=== PATIENT | female | born 1965 | race Caucasian/White ===

== ENCOUNTER 2016-03-27 22:22 | Emergency (ER) | payer BC ==
[~2016-03-27] VITALS: Ht 162.6 cm; Wt 113.4 kg
[~2016-03-27 22:22] MED LIST: ALBU8.5H6 INH; ASPI325T4 PO; BUDE10.22 IH; CARV12.5 PO; CARV3.12 PO; CARV6.252 PO; CRESTOR40 MG PO; FURO40TA4 PO; INSU100C SQ; INSU100I18 SQ; PARO20TA2 PO; VALS320T2 PO
--- NOTE | 2016-03-27 23:47 | PHYS DOC ---
Past Medical History Past Medical History: Asthma, COPD, Diabetes-Type II, High Cholesterol, Heart Disease, Hypertension Past Surgical History: Appendectomy, Coronary Bypass Surgery, , Pacemaker Alcohol Use: None Drug Use: None Adult General Chief Complaint Chief Complaint: LOWER EXT PAIN HPI HPI 50-year-old female who's had left lower extremity redness and this and pain along the anterior tibial surface that she is noted for the last day. She states subjective fever and chills. She denies any nausea or vomiting. She denies any significant pain at this time. She denies any history of blood clots. She does have history of diabetes and hypertension and has history of cardiac bypass. Review of Systems Review of Systems Constitutional: Denies fever or chills [] Eyes: Denies change in visual acuity, redness, or eye pain [] HENT: Denies nasal congestion or sore throat [] Respiratory: Denies cough or shortness of breath [] Cardiovascular: No additional information not addressed in HPI [] GI: Denies abdominal pain, nausea, vomiting, bloody stools or diarrhea [] : Denies dysuria or hematuria [] Musculoskeletal: Denies back pain, has joint pain [] Integument: Denies rash, has skin lesions [] Neurologic: Denies headache, focal weakness or sensory changes [] Endocrine: Denies polyuria or polydipsia [] Allergies Allergies Allergies Coded Allergies Type Severity Reaction Last Updated Verified codeine Allergy Severe ITCHING, Vomiting 01/01/15 Yes Physical Exam Physical Exam Constitutional: Well developed, well nourished, no acute distress, non-toxic appearance. [] HENT: Normocephalic, atraumatic, bilateral external ears normal, oropharynx moist, no oral exudates, nose normal. [] Eyes: PERRLA, EOMI, conjunctiva normal, no discharge. [] Neck: Normal range of motion, no tenderness, supple, no stridor. [] Cardiovascular:Heart rate regular rhythm, no murmur [] Lungs & Thorax: Bilateral breath sounds clear to auscultation [] Abdomen: Bowel sounds normal, soft, no tenderness, no masses, no pulsatile masses. [] Skin: Warm, dry, no erythema, no rash. [] Back: No tenderness, no CVA tenderness. [] Extremities: Area of redness and tenderness to the left anterior tibial surface approximately 3.5 cm in diameter, no cyanosis, no clubbing, ROM intact, no edema. [] Neurologic: Alert and oriented X 3, normal motor function, normal sensory function, no focal deficits noted. [] Psychologic: Affect normal, judgement normal, mood normal. [] Current Patient Data Vital Signs Vital Signs Date Time Temp Pulse Resp B/P Pulse Ox O2 Delivery O2 Flow Rate FiO2 03/27/16 23:20 70 20 192/79 95 Room Air 03/27/16 22:30 98.5 98.5 EKG EKG [] Radiology/Procedures Radiology/Procedures Left venous doppler ultrasound was negative for any acute DVT. Course & Med Decision Making Course & Med Decision Making Pertinent Labs and Imaging studies reviewed. (See chart for details) This 50 yo female has a lower extremity cellulitis for which I will be putting her on oral antibiotic therapy. I will also order venous Doppler to rule out any blood clot. I do not see any indication at this time for any laboratory workup. He'll be given her strict instructions to return in 48 hours of her infection is not improving. An ultrasound of her left lower extremity was negative for any acute DVT. I'll be discharging the patient on a course of Bactrim and Keflex for her ongoing cellulitis and she'll follow-up as discussed. Dragon Disclaimer Dragon Disclaimer This electronic medical record was generated, in whole or in part, using a voice recognition dictation system. Departure Departure Impression: Primary Impression: Cellulitis Disposition: 01 HOME, SELF-CARE Admitting Physician: Other Condition: STABLE Referrals: JEIMY GIBSON MD (PCP) Patient Instructions: Cellulitis, [id number] Additional Instructions: Please take your antibiotic as prescribed and follow up closely with your primary care doctor in the next 2-3 days. Return to the ER if you develop any worsening of your symptoms. Return if you develop any worsening of your redness or pain or your area of redness should get any worse. Scripts Cephalexin (Keflex)500 Mg [id number] Mg PO QID #40 CAP Prov:ELIESER ESPINAL DO 03/28/16 Sulfamethoxazole/Trimethoprim (Bactrim Ds Tablet)1 Each Tablet1 Tab PO BID #20 TAB Prov:ELIESER ESPINAL DO 03/28/16 ELIESER ESPINAL DO Mar 27, 2016 23:47
[2016-03-28] MEDS ORDERED: SULF1TAB24 PO (00:03)
[2016-03-28] MEDS ORDERED: CEPH-264 PO (00:03)
[2016-03-28 00:16] VITALS: BP 191/81
--- NOTE | 2016-03-28 00:17 | RAD ---
LEFT LOWER EXTREMITY VENOUS DUPLEX DOPPLER Indication: SMALL FOCAL AREA OF CELLULITIS ON MEDIAL LT ANKLE. Reason: r/o dvt / Spl. Instructions: / History: Technique: Multiple real-time grayscale sonographic images were obtained over the left lower extremity with use of spectral analysis and color Doppler imaging. Findings: There is normal color fill in on Doppler imaging of the deep venous system in the left lower extremity. There is normal response to compression and augmentation. No evidence for deep venous thrombosis. No soft tissue mass or fluid collection is identified. Impression: Negative for deep venous thrombosis in the left lower extremity. Electronically signed by: Joshua Bean (Mar 28, 2016 00:16:50)
== END 2016-03-28 00:17 | disposition home or self-care (01) ==
LOC: ER 22:22
DX: L03.116 Cellulitis of left lower limb (principal); E78.00 Pure hypercholesterolemia, unspecified; E11.9 Type 2 diabetes mellitus without complications; J44.0 Chronic obstructive pulmonary disease with (acute) lower respiratory infection; J45.909 Unspecified asthma, uncomplicated; I11.9 Hypertensive heart disease without heart failure; I51.9 Heart disease, unspecified; Z95.0 Presence of cardiac pacemaker; Z95.1 Presence of aortocoronary bypass graft; Z90.49 Acquired absence of other specified parts of digestive tract; Z98.890 Other specified postprocedural states; Z88.5 Allergy status to narcotic agent
CPT/HCPCS: 93971; 99284-25

== ENCOUNTER 2016-05-31 15:32 | Emergency (ER) | payer BC ==
[~2016-05-31] VITALS: Ht 162.6 cm; Wt 113.4 kg
[~2016-05-31 15:32] MED LIST changes: +CEPH-264 PO; -PARO20TA2 PO; +PARO20TA3 PO; +SULF1TAB24 PO
--- NOTE | 2016-05-31 16:15 | EKG ---
[facility] [address] [place] [address] Test Date: 2016-05-31 Test Time: 15:38:14 Pat Name: LORENZO GRANT Department: Room: Gender: F Major Account Manager: : 1965 Requested By: LISSETTE TIERNEY Order Number: [id number] Reading MD: Measurements Intervals [place] Rate: 117 P: 29 NH: 182 QRS: -49 QRSD: 104 T: 80 QT: 310 QTc: 437 Interpretive Statements SINUS TACHYCARDIA ATRIAL PREMATURE COMPLEX(ES) ABNORMAL LEFT AXIS DEVIATION R-S TRANSITION ZONE IN V LEADS DISPLACED TO THE LEFT LEFT ANTERIOR FASCICULAR BLOCK QRS(T) CONTOUR ABNORMALITY CONSIDER ANTEROSEPTAL MYOCARDIAL DAMAGE ST & T ABNORMALITY, CONSIDER HIGH LATERAL ISCHEMIA OR LEFT VENTRICULAR STRAIN ABNORMAL ECG RI6.01 No previous ECG available for comparison
--- NOTE | 2016-05-31 16:45 | PHYS DOC ---
Past Medical History Past Medical History: Asthma, CHF, COPD, Diabetes-Type II, High Cholesterol, Heart Disease, Hypertension Past Surgical History: Appendectomy, Coronary Bypass Surgery, , Pacemaker Alcohol Use: None Drug Use: None Adult General Chief Complaint Chief Complaint: Palpitations HPI HPI 50-year-old female presenting to the emergency department today after having her defibrillator shock or 5 times. She has a history of a CABG and a pacemaker defibrillator placed by Dr. Thomas a few years ago. She reports having heart and lung disease. She also had chest tightness earlier which was alleviated by nitroglycerin given by EMS. They also gave her 324 of aspirin. She denies nausea vomiting or diaphoresis. Review of systems is negative for loss of consciousness, syncope, abdominal pain , nausea vomiting. Currently she is chest pain-free. All other review of systems is negative unless otherwise noted in history of present illness. Review of Systems Review of Systems SEE ABOVE. Current Medications Current Medications Current Medications Medications (Trade) Dose Ordered Sig/Kathya Start Time Stop Time Status Last Admin Dose Admin Aspirin (Children'S Aspirin) 324 mg 1X ONCE 05/31/16 20:00 05/31/16 20:01 DC Diltiazem HCl (Cardizem) 10 mg 1X ONCE 05/31/16 20:15 05/31/16 20:16 DC Diltiazem HCl/ Dextrose (Cardizem) 125 ml @ 0 mls/hr 1X ONCE 05/31/16 20:00 05/31/16 20:01 DC Allergies Allergies Allergies Coded Allergies Type Severity Reaction Last Updated Verified codeine Allergy Severe ITCHING, Vomiting 01/01/15 Yes Physical Exam Physical Exam Constitutional: Well developed, well nourished, no acute distress, non-toxic appearance. HENT: Normocephalic, atraumatic, bilateral external ears normal, oropharynx moist, no oral exudates, nose normal. [] Eyes: PERRLA, EOMI, conjunctiva normal, no discharge. [] Neck: Normal range of motion, no tenderness, supple, no stridor. [] Cardiovascular:Heart rate regular rhythm, no murmur . Mildly tachycardic with an irregular rhythm. Lungs & Thorax: Bilateral breath sounds clear to auscultation []. No crackles. No wheezing. Abdomen: Bowel sounds normal, soft, no tenderness, no masses, no pulsatile masses. Skin: Warm, dry, no erythema, no rash. [] Back: No tenderness, no CVA tenderness. Extremities: No tenderness, no cyanosis, no clubbing, ROM intact, no edema. [] Neurologic: Alert and oriented X 3, normal motor function, normal sensory function, no focal deficits noted. Psychologic: Affect normal, judgement normal, mood normal. [] Current Patient Data Vital Signs Vital Signs Date Time Temp Pulse Resp B/P Pulse Ox O2 Delivery O2 Flow Rate FiO2 05/31/16 20:06 124 20 200/100 93 Room Air 05/31/16 15:56 98.7 98.7 Lab Values Laboratory Tests Test 05/31/16 15:45 White Blood Count 10.9x10^3/uL (4.0-11.0) Red Blood Count 5.07x10^6/uL (3.50-5.40) Hemoglobin 14.3g/dL (12.0-15.5) Hematocrit 43.7% (36.0-47.0) Mean Corpuscular Volume 86fL (79-100) Mean Corpuscular Hemoglobin 28pg (25-35) Mean Corpuscular Hemoglobin Concent 33g/dL (31-37) Red Cell Distribution Width 14.4% (11.5-14.5) Platelet Count 225x10^3/uL (140-400) Neutrophils (%) (Auto) 74% (31-73) H Lymphocytes (%) (Auto) 17% (24-48) L Monocytes (%) (Auto) 6% (0-9) Eosinophils (%) (Auto) 2% (0-3) Basophils (%) (Auto) 1% (0-3) Neutrophils # (Auto) 8.1x10^3uL (1.8-7.7) H Lymphocytes # (Auto) 1.8x10^3/uL (1.0-4.8) Monocytes # (Auto) 0.7x10^3/uL (0.0-1.1) Eosinophils # (Auto) 0.2x10^3/uL (0.0-0.7) Basophils # (Auto) 0.1x10^3/uL (0.0-0.2) Sodium Level 138mmol/L (136-145) Potassium Level 4.5mmol/L (3.5-5.1) Chloride Level 99mmol/L (98-107) Carbon Dioxide Level 24mmol/L (21-32) Anion Gap 15 (6-14) H Blood Urea Nitrogen 20mg/dL (7-20) Creatinine 0.7mg/dL (0.6-1.0) Estimated GFR (Cockcroft-Gault) 88.2 Glucose Level 353mg/dL (70-99) H Calcium Level 9.6mg/dL (8.5-10.1) Total Bilirubin 0.6mg/dL (0.2-1.0) Direct Bilirubin < 0.1mg/dL (0.0-0.2) Aspartate Amino Transferase (AST) 20U/L (15-37) Alanine Aminotransferase (ALT) 23U/L (14-59) Alkaline Phosphatase 81U/L (46-116) Troponin I Quantitative 0.263ng/mL (0.000-0.055) JI-Lnx-K-Type Natriuretic Peptide 873pg/mL (0-124) H Total Protein 7.2g/dL (6.4-8.2) Albumin 3.3g/dL (3.4-5.0) L Lipase 266U/L (73-393) Laboratory Tests 05/31/16 15:45 Laboratory Tests 05/31/16 15:45 EKG EKG [] EKG shows sinus rhythm with possible increasingly prolonging MI interval. Tachycardia present. ST segments congruent. axis leftward. Radiology/Procedures Radiology/Procedures [] Chest x-ray shows no obvious infiltrate or pneumothorax. Cardiomegaly present. Course & Med Decision Making Course & Med Decision Making Pertinent Labs and Imaging studies reviewed. (See chart for details) Initial impression: 50-year-old female presenting to the emergency department with multiple defibrillations by her ICD. Upon presentation to the emergency department the patient is tachycardic and hypertensive. Pertinent physical exam shows tachycardia. Otherwise the patient is not in any distress and comfortable in the hospital gurney. The patient was given and admitted to our hospital for telemetry monitoring and cardiology consultation. Update: Upon reassessment of the patient the patient and her family is very upset. I tried to explain to them that I was with a critical patient in the interim and apologized for the wait. The patient was being admitted to the hospital for telemetry and cardiology consultation. I informed the patient of their right to a medical screening exam and any treatment and/or stabilization that may be necessary regardless of their ability to pay. The patient appears to have intact insight, judgment, and reason. In my opinion, this patient has the capacity to make decisions. I felt that the patient had medical decision making capabilities. The patient presented with being shocked by her icd and I am concerned that she is having multiple runs of ventricular tachycardia or ventricular fibrillation.. My initial plan prior to the pt expressing the desire to leave was to admit the patient to our hospital, give diltiazem to help her with her rate. I had the chance to talk to Dr Mckeon who recommended amiodarone. Unfortunately the patient left prior to my having gotten a hold of our cardiology team. He recommended we call the patient to offer her amiodarone 400 mg twice a day. I attempted to call the patient however the patient did not return our phone call. Voice mail was left to call back. No call back was received. Prior to the patient leaving, I offered her nitroglycerin to go home with which she declined. I explained the risk of and disability to the patient in plain language which they were able to demonstrate in their own words verbal understanding. Specifically, I was concerned the patient might return in acute cardiac arrest. I communicated this to them. I discussed the limitations of the workup thus far included but were not limited to cardiology consultation and admission to the hospital. The pt has verbalized understanding of my concerns. I offered alternatives to the therapy including close outpatient follow-up with cardiology. I recommended the pt follow up with Dr. Mckeon or [facility] tomorrow. Patient's family is here with her today, her brother and another female. They understand the gravity of the patient's condition and our agreement with the patient's decision. I explained that at any time if the patient changed their mind, we are always open and would be happy to have them back. The patient refused further care and then left against medical advice. Dragon Disclaimer Dragon Disclaimer This electronic medical record was generated, in whole or in part, using a voice recognition dictation system. Departure Departure Impression: Primary Impression: ICD (implantable cardioverter-defibrillator) in place Additional Impression: Presence of cardioverter defibrillator Disposition: AGAINST MEDICAL ADVICE Admitting Physician: Laura, Cunmei Condition: GRAVE Referrals: JEIMY GIBSON MD (PCP) Problem Qualifiers LISSETTE TIERNEY MD May 31, 2016 16:45
[2016-05-31 16:47] LABS: BASO # 0.1 x10^3/uL (0.0-0.2); BASO % 1 % (0-3); EOS % 2 % (0-3); HEMATOCRIT 43.7 % (36.0-47.0); HEMOGLOBIN 14.3 g/dL (12.0-15.5); LYMPH # 1.8 x10^3/uL (1.0-4.8); LYMPH % 17 % (24-48); MEAN CORPUSCULAR HEMOGLOBIN 28 pg (25-35); MEAN CORPUSCULAR HGB CONC 33 g/dL (31-37); MEAN CORPUSCULAR VOLUME 86 fL (79-100); MONO % 6 % (0-9); NEUT % 74 % (31-73); PLATELET COUNT 225 x10^3/uL (140-400); RED BLOOD COUNT 5.07 x10^6/uL (3.50-5.40); RED CELL DISTRIBUTION WIDTH 14.4 % (11.5-14.5); WHITE BLOOD COUNT 10.9 x10^3/uL (4.0-11.0)
[2016-05-31 17:04] LABS: ANION GAP 15 (6-14); BLOOD UREA NITROGEN 20 mg/dL (7-20); CALCIUM 9.6 mg/dL (8.5-10.1); CARBON DIOXIDE 24 mmol/L (21-32); CHLORIDE 99 mmol/L (98-107); CREATININE 0.7 mg/dL (0.6-1.0); GFR 88.2; GLUCOSE 353 mg/dL (70-99); POTASSIUM 4.5 mmol/L (3.5-5.1); SODIUM 138 mmol/L (136-145)
[2016-05-31 17:10] LABS: ALBUMIN 3.3 g/dL (3.4-5.0); ALK PHOS 81 U/L (46-116); ALT (SGPT) 23 U/L (14-59); AST (SGOT) 20 U/L (15-37); DIRECT BILIRUBIN < 0.1 mg/dL (0.0-0.2); TOTAL BILIRUBIN 0.6 mg/dL (0.2-1.0); TOTAL PROTEIN 7.2 g/dL (6.4-8.2)
[2016-05-31] MEDS ORDERED: ASPIRIN 81 MG TAB.CHEW PO ONE (20:00)
[2016-05-31] MEDS ORDERED: DILTIAZEM 125 MG in IV DEXTROSE 5% 100 ML IV ONE (20:00)
[2016-05-31 20:06] VITALS: BP 200/100
[2016-05-31] MEDS ORDERED: DILTIAZEM IV PUSH 25 MG/5 ML VIAL. IVP ONE (20:15)
--- NOTE | 2016-06-01 08:55 | RAD ---
Portable chest, 05/31/2016: History: Chest pain Comparison is made to a study from 01/01/2015. There has been a previous median sternotomy. A left-sided transvenous pacemaker remains in place with 2 leads extending into the right heart. The heart is mildly enlarged. The pulmonary vascularity is normal. No pulmonary infiltrates are seen. There is no evidence of pleural fluid. IMPRESSION: 1. Unchanged cardiomegaly. 2. No acute cardiopulmonary abnormality is detected.
== END 2016-05-31 20:43 | disposition left against medical advice (07) ==
LOC: ER 15:32
DX: Z95.810 Presence of automatic (implantable) cardiac defibrillator (principal); R07.89 Other chest pain; J44.0 Chronic obstructive pulmonary disease with (acute) lower respiratory infection; J45.909 Unspecified asthma, uncomplicated; I11.0 Hypertensive heart disease with heart failure; I50.9 Heart failure, unspecified; E11.9 Type 2 diabetes mellitus without complications; E78.00 Pure hypercholesterolemia, unspecified; Z95.0 Presence of cardiac pacemaker; Z95.1 Presence of aortocoronary bypass graft; Z90.49 Acquired absence of other specified parts of digestive tract; Z88.5 Allergy status to narcotic agent
CPT/HCPCS: 36415; 71010; 80048; 80076; 83690; 83880; 84484; 85027; 93005; 99285-25

== ENCOUNTER → 2017-06-03 | Outpatient (CLI) | payer BC | END | disposition home or self-care (01) | LOC: KCIC US 14:52 | DX: E04.1 Nontoxic single thyroid nodule (principal) | CPT/HCPCS: 76536 ==

== ENCOUNTER → 2018-12-26 | Outpatient (CLI) | payer BC ==
[~2018-12-26] MED LIST changes: -ASPI325T4 PO; +ASPI325T8 PO; +CARV6.2511 PO; -CARV6.252 PO
--- NOTE | 2018-12-26 17:50 | KCIC ---
PELVIS W/TV History: Postmenopausal bleeding Comparison: None. Findings: Multiple transabdominal sonographic images of the pelvis are submitted. Pelvic structures are poorly seen. Transvaginal ultrasound: Multiple transvaginal sonographic images of the pelvis are submitted. There is nabothian cysts. Uterus measured 7.9 x 4 x 5.5 cm, somewhat heterogeneous appearance of the uterine parenchyma without discrete mass demonstrated. There are likely some small scattered calcifications of the uterine parenchyma. No free fluid is demonstrated. Left ovary could not be visualized. Right ovary measured 4.4 x 2.5 x 3.8 cm. There is a hypoechoic lesion of the right ovary up to 2.8 x 2.5 x 2.9 cm, no associated vascularity. There is normal low resistance vascularity of the right ovary. Endometrium is within normal limits at about 0.2 cm. Impression: 1. Endometrial thickness is within normal limits. 2. There is nonspecific somewhat heterogeneous appearance of the uterine parenchyma with associated calcifications. 3. Left ovary could not be visualized. 4. There is a simple cyst of the right ovary. Electronically signed by: Juan Francisco Perdomo MD (12/26/2018 5:47 PM) [id number]
== END | disposition home or self-care (01) ==
LOC: KCIC US 13:51
PROVIDERS: ATTEND Nurse Practitioner Family
DX: N83.291 Other ovarian cyst, right side (principal); N88.8 Other specified noninflammatory disorders of cervix uteri; N92.4 Excessive bleeding in the premenopausal period
CPT/HCPCS: 76830; 76856